=== PATIENT | male | born 1965 | race Caucasian/White ===

== ENCOUNTER 2017-01-19 19:00 | Outpatient (CLI) ==
[2015-01-24 01:57] VITALS: BMI 29.5
== END 2017-01-19 19:01 | disposition home or self-care (01) ==
LOC: AMBL 19:00
PROVIDERS: ATTEND Emergency Medicine
DX: S01.91XA Laceration without foreign body of unspecified part of head, initial encounter (principal); Y00.XXXA Assault by blunt object, initial encounter